=== PATIENT | female | born 1970 | race Caucasian/White ===

== ENCOUNTER 2025-02-18 07:39 | Outpatient (CLI) | payer BC, SELFPAY ==
--- NOTE | 2025-02-18 07:45 | CRLHL7_ITS ---
For Patients: As a result of the Century Cures Act, medical imaging exams and procedure reports are released immediately into your electronic medical record. You may view this report before your referring provider. If you have questions, please contact your health care provider. DIGITAL DIAGNOSTIC BILATERAL MAMMOGRAM USING TOMOSYNTHESIS AND COMPUTER-AIDED DETECTION LEFT BREAST ULTRASOUND CLINICAL HISTORY: LEFT breast lumps. COMPARISON: 04/09/2024, 08/12/2022. TECHNIQUE: Digital BILATERAL mammogram in four projections with computer-aided detection. Tomosynthesis was used in this interpretation. Real-time ultrasound imaging of LEFT breast with imaging documentation. BREAST COMPOSITION: There are scattered areas of fibroglandular density. FINDINGS: 3D CC/MLO BILATERAL mammogram images submitted. Benign calcifications are present bilaterally. No architectural distortion. No adenopathy. Targeted LEFT breast ultrasound performed in the areas of concern. At 12 o`clock 3 cm from the nipple there is a solid and cystic structure which measures 4 x 3 x 4 millimeters. Similar lesion is present at 12 o`clock 5 cm from the nipple measuring 8 x 5 x 11 millimeters. A third cystic area is present at 12 o`clock 6 cm from the nipple at anterior depth measuring 2 x 2 x 3 millimeters. All these lesions have fat density on the mammograms. IMPRESSION: Multifocal fat necrosis from prior trauma related to dog bites. No suspicious findings. No abscess or malignancy. RECOMMENDATIONS: Routine screening mammography. Clinical follow-up. A lay language report of this examination will be provided to the patient. BI-RADS Category 2. Benign Dictated by Angel Jade MD @ 02/18/2025 9:04:32 AM jj/Dictated by: Angel Jade MD @ 02/18/2025 9:04:00 AM (Electronically Signed)
--- NOTE | 2025-02-18 08:15 | CRLHL7_ITS ---
For Patients: As a result of the Cures Act, medical imaging exams and procedure reports are released immediately into your electronic medical record. You may view this report before your referring provider. If you have questions, please contact your health care provider. SEE DIGITAL DIAGNOSTIC BILATERAL MAMMOGRAM PERFORMED SAME DAY CRL:boyd nix/Dictated by: Angel Jade MD @ 02/18/2025 9:04:00 AM (Electronically Signed)
== END 2025-02-18 07:40 | disposition home or self-care (01) ==
LOC: MAMMO 07:46
PROVIDERS: PCP Family Medicine; Visit Provider Family Medicine
DX: N63.20 Unspecified lump in the left breast, unspecified quadrant (principal)
CPT/HCPCS: 76642; 77066; G0279